=== PATIENT | female | born 1945 | race Caucasian/White ===

== ENCOUNTER → 2023-12-31 13:05 | Outpatient (REF) | payer OTHER, SELFPAY | LOC: HWWDC 13:05 | PROVIDERS: ATTENDING PHYSICIAN Internal Medicine | DX: Z12.31 Encounter for screening mammogram for malignant neoplasm of breast (principal) | CPT/HCPCS: 77063; 77067 ==

== ENCOUNTER → 2024-07-13 09:41 | Outpatient (REF) | payer OTHER, SELFPAY | LOC: HWRAD 09:41 | PROVIDERS: ATTENDING PHYSICIAN Urology; FAMILY PHYSICIAN Internal Medicine | DX: N32.81 Overactive bladder (principal) | CPT/HCPCS: 76770 ==

== ENCOUNTER 2024-12-09 07:31 | Emergency (ER) | payer OTHER, SELFPAY ==
[2024-12-09 07:34] VITALS: BP 136/79
--- NOTE | 2024-12-09 08:03 | ED.GENMED ---
History of Present Illness
General
Chief Complaint: Musculo-Skeletal Complaint
Source: patient
Exam Limitations: none
Time Seen by Provider: 12/09/24 07:56
History of Present Illness
History of Present Illness:
79-year-old female slipped and fell 1 week ago landing on her left hip. Initially had pain. Pain seemed to improve for 2 to 3 days although is now worsening. Able to bear weight but with pain. Pain is mostly left hip to the left buttock. No
other complaints or injury. No head injury neck pain chest pain abdominal pain etc.
Past History
Past History
ED Past Medical History: HTN and Hypercholesterolemia
ED Past Surgical History: Gynecological and Orthopedic
Social History
Tobacco: Non-smoker
Alcohol: None
Drug: None
Personal:
Living: with family
Review of Systems
Review of Systems
All Other Systems: Not applicable
Respiratory: Reports no symptoms
Cardiac: Reports no symptoms
ABD/GI: Reports no symptoms
Phy Exam
Physical Exam
Physical Exam:
TRAUMA EXAM:
VITAL SIGNS: Vital signs reviewed, cooperative
DISTRESS: No active disease
EYES: Pupils reactive, no orbital trauma
NOSE: No deformity or epistaxis
FACE AND SCALP: No scalp or facial trauma
NECK: Supple nontender
BACK: Back nontender, pelvis stable to compression
RESPIRATORY: No distress, breath sounds normal, no tender chest wall
CARDIAC: No murmur, pulses equal and strong
ABDOMEN: Soft nontender
SKIN: Skin intact no bleeding, color normal
EXTREMITIES: Mild tenderness over the left greater trochanter. No pain with pelvic compression. No spinal tenderness. Able to rotate the hip with the legs straight but with the left hip flexed to 90 degrees has some pain with rotation. Left
femur knee tib-fib ankle all normal. Other extremities unremarkable
NEUROLOGICAL: Alert, oriented, no motor deficits
PSYCH: Mood affect normal
Course
Orders/Labs/Results
Orders:
Orders
12/09/24 08:02
CT Lower Ext W/o Iv Cont Lt Urgent
Comment:
Reason For Exam: Trauma/ongoing hip pain
CT Pelvis W/o Iv Contrast Urgent
Comment:
Reason For Exam: Trauma/ongoing hip/pelvic pain
12/09/24 10:29
Hydrocodone 5/APAP 325 [[place] 5/325] 1 tablet PO NOW STA
Vital Signs
Initial and Last Documented VS:
Initial Vital Signs
Temp Pulse Resp BP Pulse Ox
97.7 F 92 16 136/79 98
12/09/24 07:34 12/09/24 07:34 12/09/24 07:34 12/09/24 07:34 12/09/24 07:34
Last Documented Vital Signs
Temp Pulse Resp BP Pulse Ox
97.7 F 78 18 138/67 99
12/09/24 07:34 12/09/24 09:13 12/09/24 09:13 12/09/24 09:13 12/09/24 09:13
MDM/Problems Addressed
Differential Diagnosis Includes:
Hip pelvic contusion versus hairline fracture. Feel after 1 week with no shortening or rotation of the plain x-ray would not likely resolve the issue. Going right to CT.
*Radiology
Radiology exam reviewed: radiology read reviewed (Nondisplaced pelvic fracture)
*Pulse Oximetry
SaO2: 98
Oxygen Mode of Delivery: Room air
Patient hypoxic: no
*Critical Care Note
Total Time (30-74mins, 75-104mins- exclusive of procedures): Not Applicable
Data Reviewed
Review of Other/Old Records Reveals: Labs and Records
Update Note
Update Note:
Nondisplaced pelvic fractures. These are about a week old. Medically stable. Discussed options of outpatient management versus rehabilitation. Patient would prefer outpatient management. She did ask for something stronger for pain.
ED Attending Note
-
Portions of this chart may have been created with voice recognition software.� Occasional wrong word or��sound alike� substitutions may have occurred due to the inherent limitations of voice recognition software.
Discharge Plan
Departure
Patient Disposition: Home (Routine Discharge)
Date of Disposition: 12/09/24
Time of Disposition: 10:30
Patient with high blood pressure during this ER visit?: Yes
Discharge Problem:
Nondisplaced pelvic fracture
Instructions: Pelvic fracture, BLOOD PRESSURE
Prescriptions:
New
hydrocodone-acetaminophen 5-325 mg tablet
1 tab PO Q6H PRN (Reason: Pain) Qty: 14 0RF
No Action
estradiol 1 mg Tablet
1 mg PO DAILY
simvastatin 20 mg Tablet
20 mg PO QPM
lansoprazole 30 mg Capsule,Delayed Release(Dr/Ec)
30 mg PO DAILY
multivitamin Tablet
1 tab PO DAILY
omega [id number]-[id number]-fish oil [Fish Oil] 1,200 (144-216) mg Capsule
1 cap PO DAILY
venlafaxine 37.5 mg Capsule,Extended Release 24hr
37.5 mg PO DAILY
venlafaxine 75 mg Capsule,Extended Release 24hr
75 mg PO DAILY
calcium 500 mg Tablet
500 mg PO DAILY
ascorbic acid (vitamin C) [Vitamin C] 500 mg Tablet
500 mg PO DAILY
gabapentin 600 mg Tablet
600 mg PO BID
docusate sodium 100 mg Capsule
100 mg PO BID Qty: 30 0RF
sennosides [Senna Laxative] 8.6 mg Tablet
17.2 mg PO BID Qty: 30 0RF
acetaminophen [Pain Relief ES (acetaminophen)] 500 mg Tablet
1,000 mg PO Q6H Qty: 60 0RF
Rx Instructions:
DO NOT exceed >4000 mg daily.
tramadol 50 mg tablet
50 mg PO Q6H PRN (Reason: moderate-severe pain) Qty: 30 0RF
Rx Instructions:
1 tab for moderate pain, 2 if severe.
Dx lami. Ongoing therapy.
cephalexin 500 mg tablet
500 mg PO QID Qty: 20 0RF
Saccharomyces boulardii [Florastor] 250 mg capsule
250 mg PO BID Qty: 10 0RF
Rx Instructions:
Over the counter. Take while on antibiotic.
If unavailable, choose a different probiotic.
ferrous sulfate 325 mg (65 mg iron) tablet
325 mg PO DAILY Qty: 30 0RF
Rx Instructions:
Start daily for history of iron deficiency anemia.
Over the counter.
irbesartan-hydrochlorothiazide 150-12.5 mg Tablet
1 tab PO DAILY Qty: 1 0RF
Rx Instructions:
HOLD if systolic blood pressure <130 while on Tramadol.
Referrals:
Ora Martínez MD [Family Provider, Internal Medicine]
Yoel Mulligan MD [Active, Orthopedics] - Follow up in 5-7 days
Activity Restrictions/Additional Instructions:
Follow-up with your orthopedist or the orthopedist listed
Recommend using a walker to help with comfort
Tylenol or Vicodin for pain
Return if the pain becomes unmanageable progression of pain etc.
Interventions
Interventions:
*Risk Screen - Suicide Last Done: 12/09/24 07:34
*General Assessment Last Done: 12/09/24 09:12
*Neglect/Abuse Screening Last Done: 12/09/24 07:34
*ED- Fall Risk Assessment Last Done: 12/09/24 11:29
*ED COVID-19 Vaccine History Last Done: 12/09/24 09:12
*Nursing Disposition Last Done: 12/09/24 11:29
ED-Musculoskeletal Assessment Last Done: 12/09/24 09:12
Discharge Date and Time
Discharge Date/Time: 12/09/24 11:30
Print Language: KHMER
[2024-12-09 09:09] VITALS: BMI 25.8
[2024-12-09 09:13] VITALS: BP 138/67
[2024-12-09] MEDS: NORCO 5/325 1 TABLET PO (11:20)
== END 2024-12-09 11:30 | disposition home or self-care (01) ==
LOC: EMR 07:31
PROVIDERS: EMERGENCY PHYSICIAN Emergency Medicine; FAMILY PHYSICIAN Internal Medicine
DX: S32.592A Other specified fracture of left pubis, initial encounter for closed fracture (principal); W19.XXXA Unspecified fall, initial encounter; E78.00 Pure hypercholesterolemia, unspecified; I10 Essential (primary) hypertension
CPT/HCPCS: 99284; 72192; 73700

== ENCOUNTER → 2025-01-28 09:57 | Outpatient (REF) | payer OTHER, SELFPAY | LOC: HWRAD 09:57 | PROVIDERS: ATTENDING PHYSICIAN Internal Medicine | DX: M81.0 Age-related osteoporosis without current pathological fracture (principal) | CPT/HCPCS: 77080 ==